=== PATIENT | male | born 1970 | race African-American/Black ===

== ENCOUNTER 2017-06-26 15:53 | Inpatient (IN) | payer BC ==
[~2017-06-26] VITALS: Ht 177.8 cm; Wt 166.5 kg
[~2017-06-26 15:53] MED LIST: ASPI81TA2 PO; CARV6.25 PO; SIMV20TA2 PO
--- NOTE | 2017-06-26 16:00 | NUR ---
PATIENT TO ED DT CHEST PAIN 01/14, NON RADIATING SINCE THIS AM,. PATIENT ALSO REPORTED SOB. PT APPEARS IN NO APPARENT DISTRESS. RESPIRATION EVEN AND UNALBORED. SKIN IS WARM TO TOUCH. CONNECTED PT TO TELE MONITOR. MD PETE NOTIFIED
[2017-06-26] MEDS ORDERED: DILTIAZEM HCL 25 MG IV ONE (16:25)
[2017-06-26] MEDS ORDERED: ASPIRIN 325 MG TABLET ONE (16:25)
[2017-06-26] MEDS ORDERED: AMIODARONE 150 MG/3 ML VIAL IV ONE (16:30)
[2017-06-26] MEDS ORDERED: DILTIAZEM HCL 50 MG IV IV ONE (16:30)
[2017-06-26] MEDS ORDERED: ASPIRIN 325 MG TABLET PO ONE (16:30)
--- NOTE | 2017-06-26 16:32 | NUR ---
PER MD PETE STILL GIVE CARDIZEM 10MG IVP. ORDER VERIFIED
[2017-06-26 16:38] LABS: BASOPHILS # (AUTO) 0.1 /CMM (0.0-0.2); BASOPHILS % (AUTO) 1.2 % (0.0-2.0); EOSINOPHILS # (AUTO) 0.2 /CMM (0.0-0.7); EOSINOPHILS % (AUTO) 1.9 % (0.0-6.0); HEMATOCRIT 46 % (39-51); HEMOGLOBIN 14.8 g/dL (13.5-17.5); LYMPHOCYTES # (AUTO) 3.2 /CMM (0.8-4.8); LYMPHOCYTES % (AUTO) 27.3 % (20.0-44.0); MEAN CORPUSCULAR HEMOGLOBIN 26 PG (26.0-33.0); MEAN CORPUSCULAR HGB CONC 33 g/dl (31.0-36.0); MEAN CORPUSCULAR VOLUME 80 fL (80-96); MONOCYTES # (AUTO) 0.9 /CMM (0.1-1.30); MONOCYTES % (AUTO) 7.5 % (2.0-12.0); NEUTROPHILS # (AUTO) 7.4 /CMM (1.8-8.9); NEUTROPHILS % (AUTO) 62.1 % (43.0-81.0); PLATELET COUNT (AUTO) 235 /CMM (150-450); RDW COEFFICIENT OF VARIATION 14.6 (11.5-15.0); RED BLOOD CELL COUNT(AUTO) 5.71 MIL/uL (4.5-6.0); WHITE BLOOD COUNT (AUTO) 11.8 K/uL (4.3-11.0)
--- NOTE | 2017-06-26 16:39 | NUR ---
CALLED PHARMACY FOR AMIODARONE BOLUS AND DRIP
[2017-06-26 16:47] LABS: CALCIUM, SERUM 9.3 mg/dL (8.5-10.1); CARBON DIOXIDE 31 mmol/L (21-32); CHLORIDE 103 mmol/L (98-107); CREATININE 1.2 mg/dL (0.6-1.3); GLUCOSE 110 mg/dL (74-106); POTASSIUM 4.5 mmol/L (3.5-5.1); SODIUM SERUM 140 mmol/L (136-145); UREA NITROGEN, BLOOD 15 mg/dL (7-18)
[2017-06-26 16:56] LABS: TROPONIN I < 0.017 ng/mL (0.00-0.056)
[2017-06-26] MEDS ORDERED: IV NS 0.9% 1,000 ML IV ONE (17:00)
[2017-06-26] MEDS ORDERED: AMIODARONE 150 MG in IV D5W 100 ML IV ONE (17:00)
[2017-06-26] MEDS ORDERED: AMIODARONE 900 MG in IV D5W 482 ML IV PRN (17:00)
--- NOTE | 2017-06-26 17:01 | NUR ---
AMIODARONE DRIP GIVEN ORDERED. DUPLICATED ORDERS CANCELLED
[2017-06-26] MEDS ORDERED: IV NS 0.9% 250 ML IV ONE (17:02)
[2017-06-26] MEDS ORDERED: IOHEXOL-350 100 ML VIAL IV ONE (17:02)
[2017-06-26 17:06] LABS: INR 0.96 (0.87-1.13)
[2017-06-26] MEDS ORDERED: ASPI81TA2 PO (17:32)
--- NOTE | 2017-06-26 18:22 | NUR ---
REPORT GIVEN TO DARRYL KIMBLE FOR [facility]
[2017-06-26] MEDS ORDERED: ACETAMINOPHEN 325 MG TABLET PO PRN (19:00)
[2017-06-26] MEDS ORDERED: METOPROLOL TARTRATE 25 MG TABLET PO SCH (19:00)
[2017-06-26] MEDS ORDERED: MAG HYDROX/AL HYDROX/SIMETH 30 ML UDC PO PRN (19:00)
[2017-06-26] MEDS ORDERED: ZOLPIDEM TARTRATE 5 MG TABLET PO PRN (19:00)
[2017-06-26] MEDS ORDERED: HYDROCODONE/APAP 5/325MG 1 EACH TABLET PO PRN (19:00)
[2017-06-26] MEDS ORDERED: ONDANSETRON HCL/PF 4 MG/2 ML VIAL IVP PRN (19:00)
[2017-06-26] MEDS ORDERED: Z GUARD REMEDY 2 OZ OINT TP PRN (19:00)
[2017-06-26] MEDS ORDERED: MAGNESIUM HYDROXIDE 30 ML UDC PO PRN (19:00)
--- NOTE | 2017-06-26 19:00 | NUR ---
CHECKROOM ATTENDANT NOTES RECEIVED REPORT FROM DAY SHIFT NURSE MAREK. PATIENT RECENTLY TRANSFERRED TO ROOM 107 VIA ACLS PROTOCOL. PATIENT DENIES ANY CHEST PAIN AT THIS TIME. PATIENT IS AWAKE IN BED, ALERT AND ORIENTED X4, ABLE TO VERBALIZE NEEDS. BREATHING IS EVEN AND NONLABORED WHILE ON ROOM AIR. OFFERED O2 VIA NASAL CANNULA, PATIENT DENIES NEED AT THIS TIME. ON TELEMETRY MONITORING, REVEALING UNCONTROLLED AFIB, HR CURRENTLY 120s, CURRENTLY ON AMIODARONE DRIP, INITIATED IN ER. WILL TITRATE PRESCRIBED 6 HOURS AFTER THE DRIP WAS INITIATED. RIGHT AC #18 GAUGE PERIPHERAL IV PATENT AND INTACT, FLUSHED WITH NS, NOTED WITH GOOD VENOUS RETURN, SITE FREE FROM ANY S/S OF INFILTRATION OR PHLEBITIS. PATIENT REFUSES TO REMOVE STREET CLOTHING, UNABLE TO FULLY ASSESS SKIN. PATIENT STATES "MY SKIN IS CLEAR." EXPLAINED THE NEED TO CHECK SKIN UPON ADMISSION TO ADEQUATELY TRACK PROGRESSION OF ANY WOUNDS/SKIN CONDITIONS. PATIENT VERBALIZES UNDERSTANDING, BUT POLITELY REFUSES. PLAN OF CARE DISCUSSED IN DETAIL REGARDING AMIODARONE DRIP, WITH VERBALIZATION OF UNDERSTANDING. CALL LIGHT LEFT WITHIN EASY REACH, BED IN LOWEST AND LOCKED POSITION. WILL CONTINUE TO CLOSELY MONITOR THE PATIENT
[2017-06-26 20:00] VITALS: BP 134/90
[2017-06-26] MEDS ORDERED: ENOXAPARIN SODIUM 40 MG/0.4 ML DISP.SYRIN SQ SCH (21:00)
--- NOTE | 2017-06-26 23:00 | NUR ---
RN NOTES AMIODARONE DRIP TITRATED TO 0.5MG/MIN PRESCRIBED, TOELRATING WELL, CHIEF CUSTOMER OFFICER READS A FIB, BUT RATE IS MORE CONTROLLED COMPARED TO THE START OF THE SHIFT. PATIENT STILL DENIES ANY CHEST PAIN OR DIZZINESS, BP MAINTAINED ORDERED. WILL CONTINUE TO CLOSELY MONITOR
[2017-06-27] VITALS: BP 126/81
--- NOTE | 2017-06-27 03:32 | NUR ---
RN NOTES PATIENT NOTED WITH 5 SECOND PAUSE WHILE ON TELEMETRY MONITORING. UPON ASSESSMENT, PATIENT WAS IN A DEEP SLEEP AND SNORING, AROUSABLE TO NAME AND LIGHT TOUCH. AFTER WAKING UP, HR BACK IN 90s, AFIB. WILL CONTINUE TO CLOSELY MONITOR
[2017-06-27 04:00] VITALS: BP 139/96
--- NOTE | 2017-06-27 06:44 | NUR ---
RN CLOSING NOTES PATIENT RESTING IN BED, APPEARS COMFORTABLE, DENIES CHEST PAIN. CONTINUES ON AMIODARONE DRIP @ 0.5MG/MIN, TELEMETRY MONITORING REVEALS AFIB 90S. WILL ENDORSE THE PATIENT TO THE AM SHIFT NURSE FOR CONTINUITY OF CARE
[2017-06-27 06:49] LABS: BASOPHILS # (AUTO) 0.1 /CMM (0.0-0.2); BASOPHILS % (AUTO) 0.7 % (0.0-2.0); EOSINOPHILS # (AUTO) 0.3 /CMM (0.0-0.7); EOSINOPHILS % (AUTO) 2.6 % (0.0-6.0); HEMATOCRIT 44 % (39-51); HEMOGLOBIN 13.7 g/dL (13.5-17.5); LYMPHOCYTES # (AUTO) 3.1 /CMM (0.8-4.8); LYMPHOCYTES % (AUTO) 30.8 % (20.0-44.0); MEAN CORPUSCULAR HEMOGLOBIN 25 PG (26.0-33.0); MEAN CORPUSCULAR HGB CONC 31 g/dl (31.0-36.0); MEAN CORPUSCULAR VOLUME 81 fL (80-96); MONOCYTES # (AUTO) 0.7 /CMM (0.1-1.30); MONOCYTES % (AUTO) 6.4 % (2.0-12.0); NEUTROPHILS # (AUTO) 6.1 /CMM (1.8-8.9); NEUTROPHILS % (AUTO) 59.5 % (43.0-81.0); PLATELET COUNT (AUTO) 161 /CMM (150-450); RDW COEFFICIENT OF VARIATION 15.3 (11.5-15.0); RED BLOOD CELL COUNT(AUTO) 5.41 MIL/uL (4.5-6.0); WHITE BLOOD COUNT (AUTO) 10.2 K/uL (4.3-11.0)
[2017-06-27 07:14] LABS: CALCIUM, SERUM 9.1 mg/dL (8.5-10.1); PHOSPHORUS 3.6 mg/dL (2.5-4.9); POTASSIUM 5.1 mmol/L (3.5-5.1)
--- NOTE | 2017-06-27 07:44 | NUR ---
RN INIAL NOTE PATIENT DENIES ANY CHEST PAIN AT THIS TIME. PATIENT IS AWAKE IN BED, ALERT AND ORIENTED X4, ABLE TO VERBALIZE NEEDS. BREATHING IS EVEN AND NONLABORED WHILE ON ROOM AIR. ON TELEMETRY MONITORING, REVEALING UNCONTROLLED AFIB, HR CURRENTLY 114-130s MD LOPEZ NOTIFIED, CURRENTLY ON AMIODARONE DRIP. LFA# 20 GAUGE PERIPHERAL IV PATENT AND INTACT, NO S/S OF INFILTRATION OR PHLEBITIS. PLAN OF CARE DISCUSSED IN DETAIL REGARDING AMIODARONE DRIP, WITH VERBALIZATION OF UNDERSTANDING. CALL LIGHT LEFT WITHIN REACH, BED IN LOWEST AND LOCKED POSITION. RN WILL CONTINUE TO CLOSELY MONITOR THE PATIENT
[2017-06-27 08:00] VITALS: BP 138/99
[2017-06-27 08:51] LABS: THYROID STIMULATING HORMONE 1.134 uIU/mL (0.358-3.74)
[2017-06-27] MEDS ORDERED: ASPIRIN 81 MG TAB.CHEW PO SCH ×2 (09:00)
[2017-06-27] MEDS ORDERED: ENOXAPARIN SODIUM 100 MG/ML DISP.SYRIN SQ SCH (09:00)
--- NOTE | 2017-06-27 09:58 | NUR ---
RN NOTE MEDICATION NOT ADMINISTERED PT WILL BE GOING TO SURGERY. PT SCHEDULE FOR CARDIOVERSION. RN WILL TRANSFER PT TO ICU. RN WILL CONTINUE TO MONITOR.
[2017-06-27 12:00] VITALS: BP 137/97
--- NOTE | 2017-06-27 12:21 | NUR ---
RN NOTE PATIENT UPDATED ON PLAN OF CARE , PATIENT HAS HAD MULTIPLE EPISODES OF SLEEP APNEA , RN NOTIFIED SADIE WEST MD SPOKE WITH PATIENT ABOUT THE NEED FOR A CPAP MACHINE.
--- NOTE | 2017-06-27 12:22 | NUR ---
RN NOTE PATIENT PLACED ON BED REST DUE TO THE A-FIB AND THE INCREASE IN HR RATE CHARGE NURSE SHYANNE INFORMED. RN WILL CONTINUE TO FOLLOW
[2017-06-27 13:30] LABS: EOSINOPHILS % (MANUAL) 3 % (0-4); LYMPHOCYTES % (MANUAL) 30 % (16-48); MONOCYTES % (MANUAL) 2 % (0-11.0); NEUTROPHILS % (MANUAL) 65 (42-76)
--- NOTE | 2017-06-27 14:15 | NUR ---
RN NOTE PATIENT TRANSPORTED TO ICU STILL PRESENTING WITH UNCONTROLLED ATRIAL FIBULATION PATIENT STILL ON AMIODARONE DRIP AT 0.5MG HOWEVER PATIENT STATES NO CHEST PAIN REPORT CALLED AND GIVEN TO RN SHANNAN. SHANNAN RN NOTIFIED THAT NO MORNING MEDICATION WERE GIVEN PENDING TODAY CARDIOVERSION. PATIENT REMAINS STABLE THROUGHOUT TRANSPORT TO ICU BELONGS AND CHART SENT WITH PATIENT CHARGE NURSE NOTIFIED IN REGARDS TO TRANSPORT
--- NOTE | 2017-06-27 15:58 | NUR ---
RN OBSERVING CARDIOVERSION. PT IN RAPID AFIB 130-160'S. PT WAS NOT IN DISTRESS. AMIODARONE 0.5MG/ML INFUSING W/O EFFECT. DR. LOPEZ NURSE'S ASSISTANT AND DR. CEDENO ANASTHESIOLOGIST ARE ON THE CASE. BIPHASIC PADS PLACED ON PT. INITIAL 200J SHOCK INEFFECTIVE. SECOND 200J SHOCK EFFECTIVELY PUT RYTHYM INTO NSR 90'S. DR. CEDENO ADMINISTERED 150MCG FENTANYL. PT WAS ASLEEP DURING PROCEDURE AND IS NOW DROWSY BUT EASILY AROUSABLE. RN, SHANNAN, IS TAKING OVER NOW AND HAS BEEN GIVEN VERBAL REPORT. PT IS RESTING COMFORTABLY AT PRESENT.
[2017-06-27] MEDS ORDERED: DRON400T2 PO (16:52)
[2017-06-27] MEDS ORDERED: APIX5TAB PO (16:52)
[2017-06-27] MEDS ORDERED: APIXABAN 5 MG TABLET PO SCH (17:00)
[2017-06-27] MEDS ORDERED: DRONEDARONE HYDROCHLORIDE 400 MG TABLET PO SCH (17:00)
--- NOTE | 2017-06-27 19:10 | NUR ---
BARTENDER HELPER PATIENT COMPLAINED THAT HE FEELS LIKE HIS RIGHT SIDE OF THE TONGUE IS RUBBING ON THE TEETH WHEN STAYS NEUTRAL. ALSO HE CLAIMS THAT HE FEELS LIKE HE HAS A LISP. RN PERFORMED NIHSS STROKE ASSESSMENT. NO OTHER IMPAIRMENTS OR SPEECH IMPAIRMENTS NOTED. STABLE VITAL SINGS. RN SPOKE TO DR. SEPULVEDA AND INFORMED HIM ABOUT THE ASSESSMENT FINDINGS. MD INFORMED RN TO INFORM THAT PATIENT THAT IT IS NOT ANYTHING DANGEROUS, POSSIBLY RESIDUAL EFFECTS OF ANESTHESIA AND IF SYMPTOMS PERSIST CALL PRIMARY MD. RN INFORMED THE PATIENT. PATIENT LEFT THE HOSPITAL IN STABLE CONDITIONS.
== END 2017-06-27 19:00 | disposition home or self-care (01) | DRG 309 ==
LOC: ER 15:56 → EDBD 16:50 → TELE1 16:50 → ER 18:30 → TELE-TD 20:57 → ICU 06-27 14:02
PROVIDERS: ADMIT Internal Medicine; ATTEND Internal Medicine
PROC: 5A2204Z Restoration of Cardiac Rhythm, Single (ICD-10-PCS; principal; 2017-06-27)
PROC: 05H633Z Insertion of Infusion Device into Left Subclavian Vein, Percutaneous Approach (ICD-10-PCS; principal; 2017-06-27)
PROC: B547ZZA Ultrasonography of Left Subclavian Vein, Guidance (ICD-10-PCS; principal; 2017-06-27)
DX: I48.91 Unspecified atrial fibrillation (principal); E44.0 Moderate protein-calorie malnutrition; Z68.43 Body mass index [BMI] 50.0-59.9, adult; E66.01 Morbid (severe) obesity due to excess calories; E78.5 Hyperlipidemia, unspecified; I10 Essential (primary) hypertension; Z79.82 Long term (current) use of aspirin; Z79.899 Other long term (current) drug therapy
CPT/HCPCS: 36415; 71010-TC; 80048-TC; 83735-TC; 84100-TC; 84439-TC; 84443-TC; 84484-TC; 85025-TC; 85730-TC; 87081-TC; A4606; J0282; J1650; J2704; J3490; J7030; J7050; J7060; Q9967; Z7610

== ENCOUNTER 2019-06-23 22:42 | Emergency (ER) | payer BC, OTHER ==
[~2019-06-23] VITALS: Ht 177.8 cm; Wt 167.8 kg
[~2019-06-23 22:42] MED LIST changes: +APIX5TAB PO; -ASPI81TA2 PO; -CARV6.25 PO; +DRON400T2 PO; -SIMV20TA2 PO
--- NOTE | 2019-06-23 22:50 | NUR ---
BIBA FOR C/O PALPITATION AND SOB ON EXERTION. PT W/ HX OF A FIB. PLACED ON A MONITOR,
[2019-06-23] MEDS ORDERED: DILTIAZEM HCL 25 MG IV ONE (22:55)
[2019-06-23] MEDS ORDERED: DILTIAZEM HCL 50 MG IV IV ONE (23:00)
[2019-06-23] MEDS ORDERED: IV NS 0.9% 1,000 ML BAG IV ONE (23:00)
[2019-06-23 23:03] LABS: BASOPHILS # (AUTO) 0.1 /CMM (0.0-0.2); BASOPHILS % (AUTO) 1.2 % (0.0-2.0); EOSINOPHILS % (AUTO) 2.5 % (0.0-6.0); HEMATOCRIT 44 % (39-51); HEMOGLOBIN 14.4 g/dL (13.5-17.5); LYMPHOCYTES # (AUTO) 3.1 /CMM (0.8-4.8); LYMPHOCYTES % (AUTO) 35.5 % (20.0-44.0); MEAN CORPUSCULAR HGB CONC 33 g/dl (31.0-36.0); MEAN CORPUSCULAR VOLUME 82 fL (80-96); MONOCYTES # (AUTO) 0.7 /CMM (0.1-1.30); MONOCYTES % (AUTO) 8.4 % (2.0-12.0); NEUTROPHILS # (AUTO) 4.6 /CMM (1.8-8.9); NEUTROPHILS % (AUTO) 52.4 % (43.0-81.0); PLATELET COUNT (AUTO) 199 /CMM (150-450); RED BLOOD CELL COUNT(AUTO) 5.29 MIL/uL (4.5-6.0); WHITE BLOOD COUNT (AUTO) 8.7 K/uL (4.3-11.0)
[2019-06-23] MEDS ORDERED: AMIODARONE 150 MG/3 ML VIAL IV ONE ×2 (23:13→23:14)
[2019-06-23] MEDS ORDERED: APIXABAN 5 MG TABLET ONE (23:24)
[2019-06-23 23:27] LABS: CALCIUM, SERUM 8.7 mg/dL (8.5-10.1); CARBON DIOXIDE 25 mmol/L (21-32); CHLORIDE 100 mmol/L (98-107); CREATININE 1.1 mg/dL (0.6-1.3); GLUCOSE 172 mg/dL (74-106); POTASSIUM 3.7 mmol/L (3.5-5.1); SODIUM SERUM 137 mmol/L (136-145); UREA NITROGEN, BLOOD 17 mg/dL (7-18)
[2019-06-23] MEDS ORDERED: LORAZEPAM INJ 2 MG/ML VIAL ONE (23:29)
[2019-06-23] MEDS ORDERED: AMIODARONE 150 MG in IV D5W 100 ML IV ONE (23:30)
[2019-06-23] MEDS ORDERED: LORAZEPAM INJ 2 MG/ML VIAL IV ONE (23:30)
[2019-06-23] MEDS ORDERED: APIXABAN 2.5 MG TABLET PO SCH (23:30)
[2019-06-23] MEDS ORDERED: AMIODARONE 900 MG in IV D5W 482 ML IV PRN (23:30)
--- NOTE | 2019-06-23 23:56 | NUR ---
MASK INSPECTOR AT THE BED SIDE
--- NOTE | 2019-06-24 00:49 | NUR ---
pt in bned w/ family at the bed side. on ongoing amio drip. on continuous monitoring
--- NOTE | 2019-06-24 01:13 | NUR ---
AT THE BED SIDE
[2019-06-24] MEDS ORDERED: APIXABAN 2.5 MG TABLET PO SCH (02:00)
--- NOTE | 2019-06-24 04:40 | NUR ---
ADDENDUM: Intravenous End Time Documentation: Amiodarone 150mg IV @618ml/hr end time: (06/23/19 @ 2340); VS (prior to infusion): GB=373/81 P=120 Amiodarone 900mg IV @33.33ml/hr end time: (06/24/19 @ 0440); VS (prior to infusion): [id number]=591/85 P=99
--- NOTE | 2019-06-24 05:13 | NUR ---
Patient is resting comfortably in bed with eyes closed. Easily aroused. VSS
--- NOTE | 2019-06-24 05:52 | NUR ---
IV removed. Catheter intact and site benign. Pressure and 4x4 applied to site. No bleeding noted.Patient discharged to home in stable condition. Written and verbal after care instructions given. Patient verbalizes understanding of instruction. pt walked out w/ steady gaits w/ no c/o dizziness, nausea or SOB.
[2019-06-24 05:53] VITALS: BP 140/83
== END 2019-06-24 05:54 | disposition home or self-care (01) ==
LOC: ER 22:43
DX: I48.20 Chronic atrial fibrillation, unspecified (principal); R00.2 Palpitations; I10 Essential (primary) hypertension; Z79.899 Other long term (current) drug therapy
CPT/HCPCS: 36415; 71045; 80048; 84484; 85025; 93005 ×2; 96365; 96366; 96375; 96376; 99284; J0282 ×3; J2060; J3490; J7030; J7060 ×3